=== PATIENT | male | born 1980 | race Caucasian/White ===

== ENCOUNTER 2020-11-14 10:19 | Emergency (ER) | payer OTHER ==
[2020-11-14] MEDS ORDERED: NORCO 5-325 TA1 EACH PO (12:26)
[2020-11-14] MEDS ORDERED: MEDROL 4MG DOSEP4 MG PO (12:26)
[2020-11-14] MEDS ORDERED: NAPROXEN500 MG PO (12:26)
== END 2020-11-14 12:42 | disposition home or self-care (01) ==
LOC: FER 10:19
DX: M50.10 Cervical disc disorder with radiculopathy, unspecified cervical region (principal); M47.22 Other spondylosis with radiculopathy, cervical region
CPT/HCPCS: 72125